=== PATIENT | female | born 1990 | race Caucasian/White ===

== ENCOUNTER 2024-03-03 15:00 | Emergency (ER) | payer OTHER, SELFPAY ==
--- NOTE | ~2024-03-03 | CT_ITS ---
EXAMINATION CT HEAD WITHOUT CONTRAST CT CERVICAL SPINE WITHOUT CONTRAST CLINICAL INFORMATION: Neck pain, headache COMPARISON: None TECHNIQUE: CT of the head was performed without intravenous contrast. Reformatted axial, coronal, and sagittal images were reviewed. Then, multidetector CT of the cervical spine was performed without intravenous contrast. Reformatted axial, coronal and sagittal images were reviewed. This CT examination was performed using dose optimization techniques as appropriate, variously including the following: *Automated exposure control *Adjustment of mA and/or kV according to patient size (this includes techniques or standardized protocols for targeted exams where dose is matched to indication/reason for exam; i.e. extremities or head) *Use of iterative reconstruction technique DLP: 293 mGy-cm FINDINGS: HEAD: No intracranial hemorrhage, extra-axial fluid collection, or midline shift is identified. Hinojosa-white matter differentiation is preserved. The ventricles are within normal limits. Basal cisterns are within normal limits. Paranasal sinuses are clear. Mastoid air cells and middle ear cavities are clear. No acute calvarial fractures. CERVICAL SPINE: There is no fracture, malalignment or prevertebral soft tissue abnormality seen in the cervical spine. There is no abnormal widening of the predental space, separation of the lateral masses of C1 or facet joint distraction. Vertebral body are normal. Large disc bulge at C5-6 resulting in moderate central canal stenosis. The visualized portions of the lung parenchyma is unremarkable. CT/CT head/brain wo IV con IMPRESSION: CT HEAD: 1. No acute intracranial abnormality. CT CERVICAL SPINE: 1. No acute fracture or malalignment of the cervical spine. 2. Moderate central canal stenosis secondary to large disc bulge at C5-6. If clinically indicated, recommend further evaluation with MRI cervical spine on a nonemergent basis. Electronically signed by: Dima Granda DO 03/03/2024 05:13 PM [facility] [place]
--- NOTE | ~2024-03-03 | CT_ITS ---
EXAMINATION CT HEAD WITHOUT CONTRAST CT CERVICAL SPINE WITHOUT CONTRAST CLINICAL INFORMATION: Neck pain, headache COMPARISON: None TECHNIQUE: CT of the head was performed without intravenous contrast. Reformatted axial, coronal, and sagittal images were reviewed. Then, multidetector CT of the cervical spine was performed without intravenous contrast. Reformatted axial, coronal and sagittal images were reviewed. This CT examination was performed using dose optimization techniques as appropriate, variously including the following: *Automated exposure control *Adjustment of mA and/or kV according to patient size (this includes techniques or standardized protocols for targeted exams where dose is matched to indication/reason for exam; i.e. extremities or head) *Use of iterative reconstruction technique DLP: 293 mGy-cm FINDINGS: HEAD: No intracranial hemorrhage, extra-axial fluid collection, or midline shift is identified. Hinojosa-white matter differentiation is preserved. The ventricles are within normal limits. Basal cisterns are within normal limits. Paranasal sinuses are clear. Mastoid air cells and middle ear cavities are clear. No acute calvarial fractures. CERVICAL SPINE: There is no fracture, malalignment or prevertebral soft tissue abnormality seen in the cervical spine. There is no abnormal widening of the predental space, separation of the lateral masses of C1 or facet joint distraction. Vertebral body are normal. Large disc bulge at C5-6 resulting in moderate central canal stenosis. The visualized portions of the lung parenchyma is unremarkable. CT/CT cervical spine wo IV con IMPRESSION: CT HEAD: 1. No acute intracranial abnormality. CT CERVICAL SPINE: 1. No acute fracture or malalignment of the cervical spine. 2. Moderate central canal stenosis secondary to large disc bulge at C5-6. If clinically indicated, recommend further evaluation with MRI cervical spine on a nonemergent basis. Electronically signed by: Dima Granda DO 03/03/2024 05:13 PM [facility] [place]
[2024-03-03 15:16] VITALS: BP 146/101; PULSE 96; RESP 16; TEMP 37.2; O2SAT 96; BMI 22.3
--- NOTE | 2024-03-03 16:34 | ED_ITS ---
HPI - Neck Pain/Injury General Chief Complaint: Neck Pain/Injury Stated Complaint: neck and right arm pain for about a month Time Seen by Provider: 03/03/24 19:19 Source: patient Limitations: no limitations History of Present Illness ED Provider: Jacy trotter PA-C HPI Narrative: 33-year-old otherwise healthy female presents with neck pain x1 month. 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 Pain primarily right-sided, radiates down the right upper extremity, associated paresthesias. Patient has no history of neck trauma. Denies weakness of upper extremities. Related Data Previous Rx's ?Medication ?Instructions ?Recorded methocarbamol 750 mg tablet 750 mg PO QID PRN pain #20 tabs 03/03/24 methylprednisolone 4 mg tablets in 4 mg PO QAM #21 ea 03/03/24 a dose pack (Medrol (Ganesh)) Allergies Allergy/AdvReac Type Severity Reaction Status Date / Time bee pollen [bee stings] Allergy Anaphylaxis Verified 03/03/24 15:19 Review of Systems 2 Review of Systems: Yes all other systems are reviewed and are negative Constitutional: Constitutional: Denies fatigue and Denies fever(s) ENT: Reports neck pain Cardiovascular: Cardiovascular: Denies chest pain and Denies dyspnea Respiratory: Respiratory: Denies dyspnea Musculoskeletal: Musculoskeletal: Denies muscle weakness, Reports neck pain and Reports tingling Neurologic: Reports tingling Endocrine: Endocrine: Denies fatigue PMFSH Past Medical History Attestation statement: The following information was validated with the patient. Social History Social History Advance Directives: No Advance Directives Information Provided: No Physical Exam 2 Vital Signs: Vital Signs: Last Vital Signs Temp 98.9 F 03/03/24 15:16 Pulse 80 03/03/24 19:26 Resp 16 03/03/24 19:26 BP 152/99 H 03/03/24 19:26 Pulse Ox 98 03/03/24 19:26 O2 Del Method Room Air 03/03/24 19:26 BMI result Body Mass Index 22.3 Const: Other: Alert, well-appearing Orientation/consciousness: patient oriented x3 Neck: Other: Full range of motion however pain with range of motion Resp: Other: Nonlabored respirations Cardio: Other: Normal peripheral perfusion Skin: Other: Warm dry no rash Neuro: General: patient oriented x3, no focal motor deficits and CN's II-XI intact bilaterally Extrem: Other: Strength 5/5 bilateral upper extremities with resistance Psych: Other: Calm cooperative Course Course Course Narrative: This is an RME: Additional HPI, ROS, PE not included below will be deferred to primary provider. RME assessment and note performed by: Chelita Wilson PA-C This is a 33-year-old female who presents emergency department with complaints of right-sided neck pain since December. She has been seen by multiple specialists and providers without improvement. No known trauma or injury. She states that she also noticed a rash on her back. Plan: Labs, imaging, further ER evaluation needed. Medications Administered Discontinued Medications Generic Name Dose Route Start Last Admin Trade Name Freq PRN Reason Stop Dose Admin Ketorolac Tromethamine 15 mg 03/03/24 20:02 03/03/24 20:12 Ketorolac Tromethamine 15 Mg/Ml Vial IM 03/03/24 20:03 15 mg ONCE ONE Administration Methocarbamol 750 mg 03/03/24 20:02 03/03/24 20:13 Methocarbamol 750 Mg Tablet PO 03/03/24 20:03 750 mg ONCE ONE Administration Medical Decision Making Medical Decision Making MDM Narrative: 33-year-old otherwise healthy female presents with neck pain x1 month. 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 Pain primarily right-sided, radiates down the right upper extremity, associated paresthesias. Patient has no history of neck trauma. Denies weakness of upper extremities. No known chronic issues History: Per patient I have considered the following differential diagnoses: Cervical strain, cervical radiculopathy, VAD, meningitis Plan: Screening labs including imaging was obtained from triage. The patient actually has a bulging disc, hence her radicular symptoms. We will send with a steroid taper, muscle relaxant. She has follow up with primary care next month, she will need an outpatient MRI. Thought about meningitis, however no meningeal signs on exam, the patient is afebrile, and she has had symptoms for a month. Thought about VAD, however she has no neurologic deficits, no headache, and again she has had symptoms for a month. I have independently reviewed the following tests: Labs: No leukocytosis, not anemic, no electrolyte abnormality CT brain and cervical spine: CT/CT cervical spine wo IV con IMPRESSION: CT HEAD: 1. No acute intracranial abnormality. CT CERVICAL SPINE: 1. No acute fracture or malalignment of the cervical spine. 2. Moderate central canal stenosis secondary to large disc bulge at C5-6. If clinically indicated, recommend further evaluation with MRI cervical spine on a nonemergent basis. Electronically signed by: Dima Granda DO 03/03/2024 05:13 PM [facility] Lab Data 03/03/24 16:39 03/03/24 16:39 Labs: Lab Results 03/03/24 Range/Units 16:39 WBC 6.6 (4.8-10.8) X10*3/uL RBC 4.05 L (4.20-5.50) X10*6/uL Hgb 12.9 (12.0-16.0) g/dl Hct 35.9 L (37.0-47.0) % MCV 88.6 (80.0-98.0) fL MCH 31.9 (27.0-33.0) pg MCHC 35.9 H (31.0-35.0) g/dl RDW 12.1 (11.0-16.0) % Plt Count 269 (160-400) X10*3/uL MPV 8.8 L (9.4-12.3) fL Immature Gran % (Auto) 0.3 (0.0-0.4) % Neut % (Auto) 52.4 (45-73) % Lymph % (Auto) 37.2 (20-40) % Rooks % (Auto) 9.1 (2-11) % Eos % (Auto) 0.2 (0-4) % Baso % (Auto) 0.8 (0-2) % Lymph # (Auto) 2.5 (1.2-4.9) X10*3/uL Rooks # (Auto) 0.6 (0.1-1.2) X10*3/uL Eos # (Auto) 0.0 (0.0-0.4) X10*3/uL Baso # (Auto) 0.1 (0.0-0.2) X10*3/uL Abs Immat Gran (auto) 0.02 (0.00-0.03) X10*3/uL Absolute Neuts (auto) 3.5 (2.0-8.3) x10*3/uL Absolute Nucleated RBC 0.000 (0.0-0.012) X10*3/uL Nucleated RBC % (auto) 0.0 (0.0-0.2) /100WBC ESR 2 (0-20) MM/HR Sodium 137 (135-145) mmol/L Potassium 3.4 (3.3-5.1) mmol/L Chloride 101 (96-108) mmol/L Carbon Dioxide 21 L (22-29) mmol/L Anion Gap 18 (12-20) BUN 13 (9-16) mg/dL Creatinine 0.76 (0.5-1.4) mg/dL Estim Creat Clear Calc 86.3 Estimated GFR > 60 Random Glucose 93 (60-115) mg/dL Calcium 9.3 (8.4-10.2) mg/dL Magnesium 1.8 (1.6-2.6) mg/dL Total Bilirubin 1.3 H (0.0-1.0) mg/dL Direct Bilirubin 0.5 (0.0-0.5) mg/dL AST 40 H (5-31) U/L ALT 33 H (0-31) U/L Alkaline Phosphatase 39 (39-117) U/L C-Reactive Protein < 0.04 (< or = 0.50) mg/dL Total Protein 7.4 (6.5-8.0) g/dL Albumin 4.7 (3.5-5.0) g/dL Discharge Plan Discharge Clinical Impression: Herniation of intervertebral disc at C5-C6 level, Cervical radiculopathy at C5 Patient Disposition: Home, Self-Care Instructions: Cervical Disc Herniation (ED), Cervical Radiculopathy (ED) Additional Instructions: You were found to have a herniated disc at C5-C6. See home care instructions. Use the steroid taper as directed take it in the morning. Use the methocarbamol as needed for further pain, this is a muscle relaxant. This medicine will cause drowsiness do not drive or operate machinery while taking the medication. If you develop weakness or numbness of the right upper extremity, seek medical assessment. Otherwise, keep your pending appointment with your primary care provider, you do require an outpatient MRI. Prescriptions: New methylprednisolone [Medrol (Ganesh)] 4 mg tablets,dose pack 4 mg PO QAM Qty: 21 0RF Rx Instructions: Take per package instructions methocarbamol 750 mg tablet 750 mg PO QID PRN (Reason: pain) Qty: 20 0RF Stand Alone Forms: Work/School Release Print Language: Azerbaijani
[2024-03-03 16:45] LABS: MANUAL DIFF FLAG NO
[2024-03-03 16:49] LABS: Basophils Absolute Auto 0.1 X10*3/uL (0.0-0.2); Basophils Percent Auto 0.8 % (0-2); Eosinophils Percent Auto 0.2 % (0-4); Hematocrit 35.9 % (37.0-47.0); Hemoglobin 12.9 g/dl (12.0-16.0); Imm Gran Abs Auto 0.02 X10*3/uL (0.00-0.03); Imm Gran Pct Auto 0.3 % (0.0-0.4); Lymphocytes Absolute Auto 2.5 X10*3/uL (1.2-4.9); Lymphocytes Percent Auto 37.2 % (20-40); Mean Corpuscular HGB Conc 35.9 g/dl (31.0-35.0); Mean Corpuscular Hemoglobin 31.9 pg (27.0-33.0); Mean Corpuscular Volume 88.6 fL (80.0-98.0); Mean Platelet Volume 8.8 fL (9.4-12.3); Monocytes Absolute Auto 0.6 X10*3/uL (0.1-1.2); Monocytes Percent Auto 9.1 % (2-11); Neutrophils Absolute Auto 3.5 x10*3/uL (2.0-8.3); Neutrophils Percent Auto 52.4 % (45-73); Platelet Count 269 X10*3/uL (160-400); Red Blood Count 4.05 X10*6/uL (4.20-5.50); Red Cell Distribution Width 12.1 % (11.0-16.0); White Blood Count 6.6 X10*3/uL (4.8-10.8)
[2024-03-03 17:13] LABS: Alanine Aminotransferase 33 U/L (0-31); Albumin Level 4.7 g/dL (3.5-5.0); Anion Gap 18 (12-20); Aspartate Amino Transferase 40 U/L (5-31); Bilirubin Direct 0.5 mg/dL (0.0-0.5); Bilirubin Total 1.3 mg/dL (0.0-1.0); Blood Urea Nitrogen 13 mg/dL (9-16); C Reactive Protein < 0.04 mg/dL (< or = 0.50); Calcium 9.3 mg/dL (8.4-10.2); Carbon Dioxide 21 mmol/L (22-29); Chloride 101 mmol/L (96-108); Creatinine Clr Calc Pharmacy 86.3; Estimated Glomerular Filt Rate > 60; Glucose Random 93 mg/dL (60-115); Magnesium 1.8 mg/dL (1.6-2.6); Potassium 3.4 mmol/L (3.3-5.1); Sodium 137 mmol/L (135-145); Total Protein 7.4 g/dL (6.5-8.0)
[2024-03-03 17:43] LABS: Erythrocyte Sedimentation Rate 2 MM/HR (0-20)
[2024-03-03 17:57] LABS: Alkaline Phosphatase 39 U/L (39-117)
[2024-03-03 19:26] VITALS: BP 152/99; PULSE 80; RESP 16; O2SAT 98
[2024-03-03] MEDS: Ketorolac Tromethamine 15 MG/ML VIAL IM (20:12)
[2024-03-03] MEDS: methocarbamoL 750 MG TABLET PO (20:13)
[2024-03-03 20:41] VITALS: BP 152/99; PULSE 80; RESP 16; TEMP 36.7; O2SAT 98
[2024-03-05 18:03] LABS: Lyme Abs Screen <0.90 index
[2024-03-09 00:13] LABS: A. Phagocytophilum Ab IgG <1:64 (<1:64); A. Phagocytophilum Ab IgM <1:20 (<1:20); E. Chaffeensis Ab IgG <1:64 (<1:64); E. Chaffeensis Ab IgM <1:20 (<1:20)
[2024-03-09 15:03] LABS: Babesia IgG <1:64 titer (<1:64); Babesia IgM <1:20 titer (<1:20)
== END 2024-03-03 20:42 | disposition home or self-care (01) ==
PROVIDERS: Physician Assistant Medical; Emergency Provider Internal Medicine
DX: M50.122 Cervical disc disorder at C5-C6 level with radiculopathy (principal)
CPT/HCPCS: 36415; 70450; 72125; 80048; 80076; 83735; 85025; 85652; 86140; 86617; 86618; 86666; 86753; 96372; 99283; 99284; J1885